=== PATIENT | female | born 1960 ===

== ENCOUNTER 2016-12-19 18:07 | Emergency (ER) | payer MEDICAID ==
[2016-12-19 18:07] VITALS: BMI 23.6
[2016-12-19 18:25] VITALS: BP 148/100; RESP 18; TEMP 97.8; O2SAT 100
[2016-12-19] MEDS ORDERED: Albuterol-Ipratrop 3 mg / 0.5 (3 ml) UD INH STA (18:45)
--- NOTE | 2016-12-19 19:16 | ED PDOC ---
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 Pt reports associated symptoms of chest tightness, sputum production, "tingling" sensation in the upper chest and lower throat. Pt denies any fever, chills, chest pain or a history of intubation. Pt reports being treated with antibiotics and steroids last month for similar symptoms which she states has provided no relief. PMD: none provided Past Medical History Reviewed: Historical Data, Nursing Documentation, Vital Signs Vital Signs: Last Vital Signs Temp 97.8 F 12/19/16 18:22 Pulse 78 12/19/16 18:22 Resp 18 12/19/16 18:22 BP 148/100 H 12/19/16 18:22 Pulse Ox 100 12/19/16 19:20 - Medical History PMH: Asthma, Bronchitis, Diabetes (type II), HTN Denies: Chronic Kidney Disease - Surgical History Surgical History: Cholecystectomy (Oct 2012), (x2) - Family History Family History: States: CAD, Diabetes - Home Medications Home Medications: Ambulatory Orders Medication Instructions Recorded Metformin HCl 1,000 mg PO BID 12/28/15 Naproxen 375 mg PO Q8 PRN #21 tab 12/28/15 amLODIPine [Norvasc] 5 mg PO DAILY 12/28/15 oxyCODONE/Acetaminophen [Percocet 1 ea PO Q6 PRN #10 tab 12/28/15 5/325 mg Tab] Naproxen [Naprosyn] 1 tab PO BID PRN #60 tab 01/22/16 Oseltamivir Phosphate [Tamiflu] 75 mg PO BID #10 capsule 01/22/16 Albuterol HFA [Ventolin HFA 90 2 puff IH Q4H #1 puff 11/18/16 mcg/actuation (8 g)] Azithromycin [Zithromax] 250 mg PO DAILY #6 tab 11/18/16 predniSONE [predniSONE Tab] 10 mg PO TID #15 tab 11/18/16 Albuterol 0.083% [Albuterol 3 ml IH Q6H PRN #50 neb 12/19/16 Sulfate 3 Ml] Methylprednisolone [Medrol Dose 4 mg PO DAILY #21 mg 12/19/16 Pack (21 tabs)] Nebulizer [Aeroeclipse] 1 each MC Q6 PRN #1 each 12/19/16 Promethazine DM [Phenergan DM 5 - 10 ml PO Q8 PRN #120 ml 12/19/16 Syrup] - Allergies Allergies/Adverse Reactions: Allergies Allergy/AdvReac Type Severity Reaction Status Date / Time No Known Allergies Allergy Verified 12/28/15 14:26 Review of Systems ROS Statement: Except As Marked, All Systems Reviewed And Found Negative Constitutional: Negative for: Fever Cardiovascular: Positive for: Other (chest tightness). Negative for: Chest Pain Respiratory: Positive for: Cough, Sputum Physical Exam - Reviewed Nursing Documentation Reviewed: Yes Vital Signs Reviewed: Yes - Physical Exam Appears: Positive for: Well, Non-toxic, No Acute Distress (pt is speaking in full sentences ) Head Exam: Positive for: ATRAUMATIC, NORMAL INSPECTION, NORMOCEPHALIC Skin: Positive for: Normal Color, Warm, DRY Eye Exam: Positive for: EOMI, Normal appearance, PERRL ENT: Positive for: Normal ENT Inspection Neck: Positive for: Normal, Painless ROM Cardiovascular/Chest: Positive for: Regular Rate, Rhythm Respiratory: Positive for: Wheezing (bilateral expiratory ). Negative for: Decreased Breath Sounds, Accessory Muscle Use, Crackles, Rales, Rhonchi Gastrointestinal/Abdominal: Positive for: Normal Exam, Bowel Sounds, Soft Back: Positive for: Normal Inspection Extremity: Positive for: Normal ROM Neurologic/Psych: Positive for: Alert, Oriented - Laboratory Results Result Diagrams: 12/19/16 19:30 12/19/16 19:30 - ECG ECG: Positive for: Interpreted By Ar ECG Rhythm: Positive for: Sinus Rhythm. Negative for: ST/T Changes Rate: 98 O2 Sat by Pulse Oximetry: 100 (RA) Pulse Ox Interpretation: Normal - Radiology X-Ray: Interpreted by Me (CXR) X-Ray Interpretation: No Acute Disease - Progress Re-evaluation Time: 22:53 (Lungs clear b/l. Reports complete relief of wheezing and dyspnea. Denies chest pain, palpitations.) Condition: Re-examined, Improved Medical Decision Making Medical Decision Making: Initial Impression: Bronchial spasm Initial Plan: * B-type natriuretic peptide * labs * Troponin I * CXR * duo-neb * solu-medrol * peak flow pre/post treatment * reevaluation Scribe Attestation: Documented by Sol Palacios, acting as a scribe for Nando Chu PA-C. Provider Scribe Attestation: All medical record entries made by the Scribe were at my direction and personally dictated by me. I have reviewed the chart and agree that the record accurately reflects my personal performance of the history, physical exam, medical decision making, and the department course for this patient. I have also personally directed, reviewed, and agree with the discharge instructions and disposition. Disposition - Clinical Impression Clinical Impression: Bronchospasm, acute - Patient ED Disposition Is Patient to be Admitted: No - Disposition Referrals: [facility] [Outside] Disposition: Routine/Home Disposition Time: 22:54 Condition: IMPROVED Prescriptions: Nebulizer [Aeroeclipse] 1 each MC Q6 PRN #1 each PRN Reason: Wheezing Albuterol 0.083% [Albuterol Sulfate 3 Ml] 3 ml IH Q6H PRN #50 neb PRN Reason: Wheezing Methylprednisolone [Medrol Dose Pack (21 tabs)] 4 mg PO DAILY #21 mg Promethazine DM [Phenergan DM Syrup] 5 - 10 ml PO Q8 PRN #120 ml PRN Reason: Cough Instructions: Bronchospasm (ED) Print Language: DIVEHI
[2016-12-19 19:37] LABS: BASO # 0.1 K/uL (0.0-0.2); BASO % 1.4 % (0.0-2.0); EOS # 1.2 K/uL (0.0-0.7); EOS % 17.6 % (0.0-4.0); HEMATOCRIT 40.5 % (34.0-47.0); LYMPH # 1.6 K/uL (1.0-4.3); MEAN CELL VOLUME 83.9 fl (81.0-99.0); MEAN CORPUSCULAR HEMOGLOBIN 27.3 pg (27.0-31.0); MEAN CORPUSCULAR HGB CONC 32.5 g/dL (33.0-37.0); MEAN PLATELET VOLUME 8.5 fl (7.2-11.7); MONO # 0.6 K/uL (0.0-0.8); MONO % 8.4 % (0.0-10.0); NEUT # 3.1 K/uL (1.8-7.0); NEUT % 47.6 % (50.0-75.0); NRBC % 0.1 % (0.0-0.0); RED CELL DISTRIBUTION WIDTH 15.6 % (11.5-14.5); WHITE BLOOD COUNT 6.6 K/uL (4.8-10.8)
[2016-12-19 19:50] LABS: ALB/GLOB RATIO 1.5 (1.0-2.1); ALKALINE PHOSPHATASE 73 U/L (38-126); ALT/SGPT 21 U/L (9-52); AST/SGOT 29 U/L (14-36); BILIRUBIN,TOTAL 0.3 mg/dl (0.2-1.3); BLOOD UREA NITROGEN 12 mg/dl (7-17); CALCIUM 9.9 mg/dL (8.4-10.2); CARBON DIOXIDE 27 mmol/L (22-30); CHLORIDE 102 mmol/L (98-107); GFR AFRICAN-AMERICAN > 60; GLUCOSE,RANDOM 94 mg/dL (65-105); POTASSIUM 4.3 MMOL/L (3.6-5.0); SODIUM 145 mmol/l (132-148); TOTAL PROTEIN 8.4 G/DL (6.3-8.2)
[2016-12-19] MEDS ORDERED: Albuterol 0.083% Inhal Sol (2.5 mg/3 mL) UD INH STA (21:09)
[2016-12-19 22:54] VITALS: PULSE 98
--- NOTE | 2016-12-20 10:34 | RAD ---
HISTORY: Cough COMPARISON: 11/18/2016 TECHNIQUE: Chest PA and lateral FINDINGS: LUNGS: There is a 10 mm nodule in the right upper lobe. The left lung is clear. The lungs are hyperinflated. PLEURA: No significant pleural effusion identified. No pneumothorax apparent. CARDIOVASCULAR: Normal. OSSEOUS STRUCTURES: No significant abnormalities. VISUALIZED UPPER ABDOMEN: Normal. OTHER FINDINGS: None. IMPRESSION: Known stable 10 mm nodule in the right upper lobe. No acute findings.
== END 2016-12-20 00:02 | disposition home or self-care (01) ==
LOC: H.ER 18:07
DX: J98.01 Acute bronchospasm (principal); E11.9 Type 2 diabetes mellitus without complications; I10 Essential (primary) hypertension

== ENCOUNTER 2017-08-17 04:41 | Emergency (ER) | payer OTHER ==
[2017-07-14 04:20] VITALS: BMI 23.2
[2017-08-17 05:00] VITALS: RESP 16; TEMP 96.7; O2SAT 98
--- NOTE | 2017-08-17 05:59 | ED PDOC ---
HPI: Headache Time Seen by Provider: 08/17/17 05:01 Chief Complaint (Nursing): Headache Chief Complaint (Provider): Headache History Per: Patient History/Exam Limitations: no limitations Onset/Duration Of Symptoms: Hrs (x 3) Current Symptoms Are (Timing): Still Present Additional Complaint(s): 56 year old female with history of diabetes, high blood pressure and occasional migraines, presents to the ED with a headache. Patient reports checking her blood pressure at home and systolic was above 200. She took extra doses of her blood pressure medication with minimal relief. Patient does not describe headache as "thunderclap" or worst she's ever had. She denies chest pain, shortness of breath, vision changes, numbness and weakness. PMD: none Past Medical History Reviewed: Historical Data, Nursing Documentation, Vital Signs Vital Signs: Last Vital Signs Temp 96.7 F L 08/17/17 04:57 Pulse 86 08/17/17 04:57 Resp 16 08/17/17 04:57 BP 184/98 H 08/17/17 04:57 Pulse Ox 98 08/17/17 04:57 - Medical History PMH: Asthma, Bronchitis, Diabetes (type II), HTN Denies: Chronic Kidney Disease - Surgical History Surgical History: Cholecystectomy (Oct 2012), (x2) - Family History Family History: States: CAD, Diabetes - Home Medications Home Medications: Ambulatory Orders Medication Instructions Recorded Metformin HCl 1,000 mg PO BID 12/28/15 Naproxen 375 mg PO Q8 PRN #21 tab 12/28/15 amLODIPine [Norvasc] 5 mg PO DAILY 12/28/15 oxyCODONE/Acetaminophen [Percocet 1 ea PO Q6 PRN #10 tab 12/28/15 5/325 mg Tab] Naproxen [Naprosyn] 1 tab PO BID PRN #60 tab 01/22/16 Oseltamivir Phosphate [Tamiflu] 75 mg PO BID #10 capsule 01/22/16 Albuterol HFA [Ventolin HFA 90 2 puff IH Q4H #1 puff 11/18/16 mcg/actuation (8 g)] Azithromycin [Zithromax] 250 mg PO DAILY #6 tab 11/18/16 predniSONE [predniSONE Tab] 10 mg PO TID #15 tab 11/18/16 Albuterol 0.083% [Albuterol 3 ml IH Q6H PRN #50 neb 12/19/16 Sulfate 3 Ml] Methylprednisolone [Medrol Dose 4 mg PO DAILY #21 mg 12/19/16 Pack (21 tabs)] Nebulizer [Aeroeclipse] 1 each MC Q6 PRN #1 each 12/19/16 Promethazine DM [Phenergan DM 5 - 10 ml PO Q8 PRN #120 ml 12/19/16 Syrup] Naproxen [Naprosyn] 500 mg PO Q6 #30 tablet 08/17/17 - Allergies Allergies/Adverse Reactions: Allergies Allergy/AdvReac Type Severity Reaction Status Date / Time No Known Allergies Allergy Verified 07/14/17 04:20 Review of Systems ROS Statement: Except As Marked, All Systems Reviewed And Found Negative Eyes: Negative for: Vision Change Cardiovascular: Negative for: Chest Pain Respiratory: Negative for: Shortness of Breath Neurological: Positive for: Headache. Negative for: Weakness, Numbness Physical Exam - Reviewed Nursing Documentation Reviewed: Yes Vital Signs Reviewed: Yes - Physical Exam Appears: Positive for: Non-toxic, No Acute Distress Head Exam: Positive for: ATRAUMATIC, NORMOCEPHALIC Skin: Positive for: Normal Color, Warm, Dry Eye Exam: Positive for: Normal appearance, PERRL Neck: Positive for: Normal, Painless ROM, Supple Cardiovascular/Chest: Positive for: Regular Rate, Rhythm. Negative for: Murmur Respiratory: Positive for: Normal Breath Sounds. Negative for: Respiratory Distress Gastrointestinal/Abdominal: Positive for: Normal Exam, Soft Back: Positive for: Normal Inspection. Negative for: L CVA Tenderness, R CVA Tenderness, Vertebral Tenderness Extremity: Positive for: Normal ROM. Negative for: Pedal Edema, Deformity Neurologic/Psych: Positive for: Alert, continuous absorption process operator II-XII, Oriented, Gait. Negative for : Motor/Sensory Deficits (wnl), Cerebellar Tests (wnl), Aphasia (wnl), Facial Droop - ECG O2 Sat by Pulse Oximetry: 98 (RA) Pulse Ox Interpretation: Normal Medical Decision Making Medical Decision Making: Time: 05:28 Impression: migraine headache Initial Plan: --Ibuprofen 600 mg PO Scribe Attestation: Documented by Xenia Lr, acting as a scribe for Jamil Andres MD Provider Scribe Attestation: All medical record entries made by the Scribe were at my direction and personally dictated by me. I have reviewed the chart and agree that the record accurately reflects my personal performance of the history, physical exam, medical decision making, and the department course for this patient. I have also personally directed, reviewed, and agree with the discharge instructions and disposition. Disposition - Clinical Impression Clinical Impression: Acute headache - Patient ED Disposition Is Patient to be Admitted: No - Disposition Referrals: Quinn Irene MD [Family Provider] - Disposition: Routine/Home Disposition Time: 06:59 Condition: STABLE Prescriptions: Naproxen [Naprosyn] 500 mg PO Q6 #30 tablet Instructions: Acute Headache (ED), Hypertension (ED) Forms: [facility] ([place]) Print Language: SLOVAK
[2017-08-17 06:58] VITALS: BP 160/93; PULSE 87
== END 2017-08-17 07:11 | disposition home or self-care (01) ==
LOC: H.ER 04:41
DX: R51 Headache (principal); E11.9 Type 2 diabetes mellitus without complications; J45.909 Unspecified asthma, uncomplicated; I10 Essential (primary) hypertension

== ENCOUNTER 2017-12-30 09:19 | Emergency (ER) | payer OTHER ==
[2017-12-30 09:21] VITALS: BMI 25.0
--- NOTE | 2017-12-30 11:01 | ED PDOC ---
HPI: General Adult Time Seen by Provider: 12/30/17 09:26 Chief Complaint (Nursing): Abnormal Skin Integrity Chief Complaint (Provider): Abnormal Skin Integrity History Per: Patient History/Exam Limitations: no limitations Onset/Duration Of Symptoms: Hrs (x 1) Additional Complaint(s): Susana López is a 57 years old female with history of HTN presents to the ED for evaluation of skin redness associated with mild itchiness developed after taking one tablet of Niacin onset 1 hour. Patient reports feeling hot, burning sensation on her face and body. She states she had a normal breakfast with coffee and denies consuming anything out of ordinary. She denies any pain, fever , difficulty breathing, tongue swelling, nausea or vomiting. Past Medical History Reviewed: Historical Data, Nursing Documentation, Vital Signs Vital Signs: Last Vital Signs Temp 97.9 F 12/30/17 11:53 Pulse 90 12/30/17 11:53 Resp 19 12/30/17 11:53 BP 149/89 12/30/17 11:53 Pulse Ox 98 12/30/17 11:53 - Medical History PMH: Asthma, Bronchitis, Diabetes (type II), HTN Denies: Chronic Kidney Disease - Surgical History Surgical History: Cholecystectomy (Oct 2012), (x2) - Family History Family History: States: CAD, Diabetes - Social History Current smoker - smoking cessation education provided: No Alcohol: None Drugs: Denies - Home Medications Home Medications: Ambulatory Orders Medication Instructions Recorded Metformin HCl 1,000 mg PO BID 12/28/15 Naproxen 375 mg PO Q8 PRN #21 tab 12/28/15 amLODIPine [Norvasc] 5 mg PO DAILY 12/28/15 oxyCODONE/Acetaminophen [Percocet 1 ea PO Q6 PRN #10 tab 12/28/15 5/325 mg Tab] Naproxen [Naprosyn] 1 tab PO BID PRN #60 tab 01/22/16 Oseltamivir Phosphate [Tamiflu] 75 mg PO BID #10 capsule 01/22/16 Albuterol HFA [Ventolin HFA 90 2 puff IH Q4H #1 puff 11/18/16 mcg/actuation (8 g)] Azithromycin [Zithromax] 250 mg PO DAILY #6 tab 11/18/16 predniSONE [predniSONE Tab] 10 mg PO TID #15 tab 11/18/16 Albuterol 0.083% [Albuterol 3 ml IH Q6H PRN #50 neb 12/19/16 Sulfate 3 Ml] Methylprednisolone [Medrol Dose 4 mg PO DAILY #21 mg 12/19/16 Pack (21 tabs)] Nebulizer [Aeroeclipse] 1 each MC Q6 PRN #1 each 12/19/16 Promethazine DM [Phenergan DM 5 - 10 ml PO Q8 PRN #120 ml 12/19/16 Syrup] Naproxen [Naprosyn] 500 mg PO Q6 #30 tablet 08/17/17 - Allergies Allergies/Adverse Reactions: Allergies Allergy/AdvReac Type Severity Reaction Status Date / Time niacin Allergy RASH Verified 12/30/17 09:32 Review of Systems ROS Statement: Except As Marked, All Systems Reviewed And Found Negative Constitutional: Negative for: Fever ENT: Negative for: Mouth Pain, Mouth Swelling (tongue) Respiratory: Negative for: Shortness of Breath Gastrointestinal: Negative for: Nausea, Vomiting Skin: Positive for: Other (mild itchiness. No pain) Physical Exam - Reviewed Nursing Documentation Reviewed: Yes Vital Signs Reviewed: Yes - Physical Exam Appears: Positive for: Non-toxic, No Acute Distress Head Exam: Positive for: ATRAUMATIC, NORMOCEPHALIC Skin: Positive for: Warm, Dry, Rash Eye Exam: Positive for: Normal appearance, EOMI, PERRL ENT: Positive for: Normal ENT Inspection, Pharynx Is (normal). Negative for: Pharyngeal Erythema, Tonsillar Swelling Neck: Positive for: Normal, Supple Cardiovascular/Chest: Positive for: Regular Rate, Rhythm. Negative for: Murmur Respiratory: Positive for: Normal Breath Sounds. Negative for: Respiratory Distress Gastrointestinal/Abdominal: Positive for: Normal Exam, Soft. Negative for: Tenderness Back: Positive for: Normal Inspection Extremity: Positive for: Normal ROM (upper and lower). Negative for: Tenderness , Swelling Neurologic/Psych: Positive for: Alert, Oriented - ECG O2 Sat by Pulse Oximetry: 99 (RA) Pulse Ox Interpretation: Normal - Progress Re-evaluation Time: 11:34 Condition: Re-examined, Improved Medical Decision Making Medical Decision Making: Time: 1027 Initial Impression: Skin Erythema. Differential include but not limited to side effect/ allergic reaction. Initial Plan: --Benadryl 25mg PO --Pepcid 20 mg PO Scribe Attestation: Documented by Michelle Dhaliwal, acting as a scribe for Rick Hopkins MD. Provider Scribe Attestation: All medical record entries made by the Scribe were at my direction and personally dictated by me. I have reviewed the chart and agree that the record accurately reflects my personal performance of the history, physical exam, medical decision making, and the department course for this patient. I have also personally directed, reviewed, and agree with the discharge instructions and disposition. Disposition - Clinical Impression Clinical Impression: Adverse reaction to niacin - Patient ED Disposition Is Patient to be Admitted: No Doctor Will See Patient In The: Office Counseled Patient/Family Regarding: Studies Performed, Diagnosis - Disposition Referrals: [facility] [Outside] Disposition: Routine/Home Disposition Time: 11:37 Condition: GOOD Additional Instructions: Take benadryl as need for itching. Follow up with your PCP in 5 days Instructions: Adverse Drug Reactions, Adult (DC) Print Language: MOLDOVAN
[2017-12-30 11:29] VITALS: TEMP 97.9
[2017-12-30 11:54] VITALS: BP 149/89; PULSE 90; RESP 19
[2017-12-30 12:22] VITALS: O2SAT 99
== END 2017-12-30 11:54 | disposition home or self-care (01) ==
LOC: H.ER 09:19
DX: T46.7X5A Adverse effect of peripheral vasodilators, initial encounter (principal); E11.9 Type 2 diabetes mellitus without complications; I10 Essential (primary) hypertension

== ENCOUNTER 2018-01-21 07:55 | Emergency (ER) | payer SELFPAY ==
[2018-01-21 08:03] VITALS: BMI 24.2
[2018-01-21] MEDS ORDERED: Albuterol-Ipratrop 3 mg / 0.5 (3 ml) UD INH STA (09:50)
[2018-01-21] MEDS ORDERED: Albuterol-Ipratrop 3 mg / 0.5 (3 ml) UD ONE (09:55)
[2018-01-21 10:55] VITALS: O2SAT 96
--- NOTE | 2018-01-21 11:20 | RAD ---
HISTORY: sob cough COMPARISON: 12/19/2016 chest x-ray and and 06/11/2014 chest x-ray. CT chest 03/05/2017 TECHNIQUE: Chest PA and lateral FINDINGS: LUNGS: The vague opacity at the right lung apex compatible with the CT referenced right lung apex 13 mm bilobed nodule. This is believe faintly perceived on the 2013 study and comparing back 2014 chest x-ray with the current chest x-ray here, no interval change is appreciated. The left very hilar soft tissue changes surrounding bronchi here are similar in appearance dating back to 2013 as well and findings are compatible with the radiographic left paramediastinal pleural parenchymal soft tissue changes- inferred as inflammatory PLEURA: No significant pleural effusion identified. No pneumothorax apparent. CARDIOVASCULAR: Normal. OSSEOUS STRUCTURES: Generalized osteopenia and mild thoracic spondylosis. VISUALIZED UPPER ABDOMEN: Normal. OTHER FINDINGS: Lung volumes appear increased on this exam-an element of COPD is not excluded. IMPRESSION: No interval pathology noted. Right lung apex nodule similar-appearing with the chest x-ray dating back to 2013 and at noted and referenced on the 2017 CT chest exam. The smaller CT chest pleural-based nodules and sub cm nodules are not appreciated on this chest x-ray but were referenced on the prior CT chest as a compared with the 05/28/2016 CT chest study. Please note the prior CT chest report
--- NOTE | 2018-01-21 11:43 | ED PDOC ---
HPI: SOB/CHF/COPD Time Seen by Provider: 01/21/18 08:25 Chief Complaint (Nursing): Shortness Of Breath Chief Complaint (Provider): Cough, Congestion, Wheezing History Per: Patient History/Exam Limitations: no limitations Onset/Duration Of Symptoms: Days (x1 week) Current Symptoms Are (Timing): Still Present Additional Complaint(s): 57 y/o female with a pmhx of asthma, diabetes, and HTN, who presents to the ED for evaluation of cough, chest congestion, and wheezing x1 week. Patient states the cough is productive of sputum. Denies chest pain and fever. PMD: [facility] Past Medical History Reviewed: Historical Data, Nursing Documentation, Vital Signs Vital Signs: Last Vital Signs Temp 97.9 F 01/21/18 12:39 Pulse 75 01/21/18 12:39 Resp 18 01/21/18 12:39 BP 147/82 01/21/18 12:39 Pulse Ox 96 01/21/18 12:39 - Medical History PMH: Asthma, Bronchitis, Diabetes (type II), HTN Denies: Chronic Kidney Disease - Surgical History Surgical History: Cholecystectomy (Oct 2012), (x2) - Family History Family History: States: CAD, Diabetes - Home Medications Home Medications: Ambulatory Orders Medication Instructions Recorded Metformin HCl 1,000 mg PO BID 12/28/15 Naproxen 375 mg PO Q8 PRN #21 tab 12/28/15 amLODIPine [Norvasc] 5 mg PO DAILY 12/28/15 oxyCODONE/Acetaminophen [Percocet 1 ea PO Q6 PRN #10 tab 12/28/15 5/325 mg Tab] Naproxen [Naprosyn] 1 tab PO BID PRN #60 tab 01/22/16 Oseltamivir Phosphate [Tamiflu] 75 mg PO BID #10 capsule 01/22/16 Azithromycin [Zithromax] 250 mg PO DAILY #6 tab 11/18/16 predniSONE [predniSONE Tab] 10 mg PO TID #15 tab 11/18/16 Methylprednisolone [Medrol Dose 4 mg PO DAILY #21 mg 12/19/16 Pack (21 tabs)] Nebulizer [Aeroeclipse] 1 each MC Q6 PRN #1 each 12/19/16 Promethazine DM [Phenergan DM 5 - 10 ml PO Q8 PRN #120 ml 12/19/16 Syrup] Naproxen [Naprosyn] 500 mg PO Q6 #30 tablet 08/17/17 Albuterol 0.083% [Albuterol 3 ml IH Q6H PRN #50 neb 01/21/18 Sulfate 3 Ml] Albuterol HFA [Ventolin HFA 90 2 puff IH Q4H #1 puff 01/21/18 mcg/actuation (8 g)] Prednisone 50 mg PO DAILY #5 tab 01/21/18 - Allergies Allergies/Adverse Reactions: Allergies Allergy/AdvReac Type Severity Reaction Status Date / Time niacin Allergy RASH Verified 12/30/17 09:32 Review of Systems ROS Statement: Except As Marked, All Systems Reviewed And Found Negative Constitutional: Negative for: Fever Cardiovascular: Positive for: Other (chest congestion). Negative for: Chest Pain Respiratory: Positive for: Cough, Sputum, Wheezing Physical Exam - Reviewed Nursing Documentation Reviewed: Yes Vital Signs Reviewed: Yes - Physical Exam Appears: Positive for: Non-toxic, No Acute Distress Head Exam: Positive for: ATRAUMATIC, NORMAL INSPECTION, NORMOCEPHALIC Skin: Positive for: Normal Color, Warm, Dry. Negative for: Rash Eye Exam: Positive for: EOMI, Normal appearance, PERRL ENT: Positive for: Normal ENT Inspection Neck: Positive for: Normal, Painless ROM, Supple Cardiovascular/Chest: Positive for: Regular Rate, Rhythm. Negative for: Murmur Respiratory: Positive for: Wheezing (bilateral) Gastrointestinal/Abdominal: Positive for: Normal Exam, Soft. Negative for: Tenderness Back: Positive for: Normal Inspection. Negative for: L CVA Tenderness, R CVA Tenderness, Vertebral Tenderness Extremity: Positive for: Normal ROM. Negative for: Pedal Edema, Deformity Neurologic/Psych: Positive for: Alert, Oriented. Negative for: Motor/Sensory Deficits - ECG O2 Sat by Pulse Oximetry: 96 (RA) Pulse Ox Interpretation: Normal - Radiology X-Ray: Viewed By Me, Read By Radiologist X-Ray Interpretation: No Acute Disease, Other (pulmonary nodule) Medical Decision Making Medical Decision Makin:48 Initial Impression: Wheezing and cough. Differential diagnoses include, but are not limited to asthma exacerbation, r/o pneumonia Plan: --EKG --CXR --Duoneb 3ml INH --Prednosione 60mg PO --Influenza A B --Reevaluation Scribe Attestation: Documented by Robert Carrasquillo, acting as a scribe for Rick Hopkins MD. Provider Scribe Attestation: All medical record entries made by the Scribe were at my direction and personally dictated by me. I have reviewed the chart and agree that the record accurately reflects my personal performance of the history, physical exam, medical decision making, and the department course for this patient. I have also personally directed, reviewed, and agree with the discharge instructions and disposition. Disposition - Clinical Impression Clinical Impression: Pulmonary nodule, Asthma - Patient ED Disposition Is Patient to be Admitted: No Doctor Will See Patient In The: Office Counseled Patient/Family Regarding: Studies Performed, Diagnosis, Need For Followup - Disposition Referrals: [facility] [Outside] Disposition: Routine/Home Disposition Time: 11:00 Condition: GOOD Additional Instructions: Take your medications as instructed. Follow up with your PCP in 2-3 days. Prescriptions: Albuterol 0.083% [Albuterol Sulfate 3 Ml] 3 ml IH Q6H PRN #50 neb PRN Reason: Wheezing Albuterol HFA [Ventolin HFA 90 mcg/actuation (8 g)] 2 puff IH Q4H #1 puff Prednisone 50 mg PO DAILY #5 tab Instructions: Asthma in Adults, Pulmonary Nodule Print Language: ANGUILLAN
[2018-01-21 12:41] VITALS: BP 147/82; PULSE 75; RESP 18; TEMP 97.9
--- NOTE | 2018-01-21 17:51 | CARD ---
APPROVED REPORT EKG Measurement Heart [id number] ID [id number] <Conclusion> Normal sinus rhythm Nonspecific ST abnormality Abnormal ECG
== END 2018-01-21 12:35 | disposition home or self-care (01) ==
LOC: H.ER 07:55
DX: J44.9 Chronic obstructive pulmonary disease, unspecified (principal); R91.1 Solitary pulmonary nodule; J45.909 Unspecified asthma, uncomplicated; E11.9 Type 2 diabetes mellitus without complications; I10 Essential (primary) hypertension; Z82.49 Family history of ischemic heart disease and other diseases of the circulatory system

== ENCOUNTER 2018-05-27 15:56 | Emergency (ER) | payer SELFPAY ==
[2018-05-27 15:56] VITALS: BMI 24.2
[2018-05-27 16:22] VITALS: O2SAT 99
--- NOTE | 2018-05-27 16:42 | ED PDOC ---
HPI: CCC, URI, Sore Throat Time Seen by Provider: 05/27/18 16:34 Chief Complaint (Nursing): ENT Problem Chief Complaint (Provider): sore throat neck pain History Per: Patient, Editor Index (melissa [id number]) History/Exam Limitations: no limitations Onset/Duration Of Symptoms: Days (2) Current Symptoms Are (Timing): Still Present Location Of Pain: Diffuse Myalgias Sick Contacts (Context): None Additional History Per: Family Additional Complaint(s): 57yo female c/o mild neck pain and sore throat ongoing 2 days. Associated w mild malaise, denies significant headache, rash or photophobia. Past Medical History Reviewed: Historical Data, Nursing Documentation, Vital Signs Vital Signs: Last Vital Signs Temp 97.5 F L 05/27/18 19:25 Pulse 74 05/27/18 19:25 Resp 17 05/27/18 19:25 BP 111/65 05/27/18 19:25 Pulse Ox 99 06/09/18 15:02 - Medical History PMH: Asthma, Bronchitis, Diabetes (type II), HTN Denies: Chronic Kidney Disease - Surgical History Surgical History: Cholecystectomy (Oct 2012), (x2) - Family History Family History: States: CAD, Diabetes - Social History Current smoker - smoking cessation education provided: No - Home Medications Home Medications: Ambulatory Orders Medication Instructions Recorded Metformin HCl 1,000 mg PO BID 12/28/15 Naproxen 375 mg PO Q8 PRN #21 tab 12/28/15 amLODIPine [Norvasc] 5 mg PO DAILY 12/28/15 oxyCODONE/Acetaminophen [Percocet 1 ea PO Q6 PRN #10 tab 12/28/15 5/325 mg Tab] Naproxen [Naprosyn] 1 tab PO BID PRN #60 tab 01/22/16 Oseltamivir Phosphate [Tamiflu] 75 mg PO BID #10 capsule 01/22/16 Azithromycin [Zithromax] 250 mg PO DAILY #6 tab 11/18/16 predniSONE [predniSONE Tab] 10 mg PO TID #15 tab 11/18/16 Methylprednisolone [Medrol Dose 4 mg PO DAILY #21 mg 12/19/16 Pack (21 tabs)] Nebulizer [Aeroeclipse] 1 each MC Q6 PRN #1 each 12/19/16 Promethazine DM [Phenergan DM 5 - 10 ml PO Q8 PRN #120 ml 12/19/16 Syrup] Naproxen [Naprosyn] 500 mg PO Q6 #30 tablet 08/17/17 Albuterol 0.083% [Albuterol 3 ml IH Q6H PRN #50 neb 01/21/18 Sulfate 3 Ml] Albuterol HFA [Ventolin HFA 90 2 puff IH Q4H #1 puff 01/21/18 mcg/actuation (8 g)] Prednisone 50 mg PO DAILY #5 tab 01/21/18 Amoxicillin/Clavulanate [Augmentin 1 tab PO BID #14 tab 05/27/18 875 MG-125 MG] Cyclobenzaprine [Cyclobenzaprine 10 mg PO Q8 PRN #9 tab 05/27/18 HCl] Ibuprofen [Motrin Tab] 600 mg PO Q6 PRN #15 tab 05/27/18 - Allergies Allergies/Adverse Reactions: Allergies Allergy/AdvReac Type Severity Reaction Status Date / Time niacin Allergy RASH Verified 12/30/17 09:32 Review of Systems Constitutional: Positive for: Malaise ENT: Positive for: Throat Pain. Negative for: Throat Swelling Cardiovascular: Negative for: Chest Pain Respiratory: Negative for: Shortness of Breath Gastrointestinal: Negative for: Nausea Genitourinary Female: Negative for: Dysuria, Hematuria Musculoskeletal: Positive for: Neck Pain. Negative for: Shoulder Pain, Back Pain, Leg Pain Skin: Negative for: Rash, Lesions, Jaundice Neurological: Positive for: Headache (mild). Negative for: Weakness, Numbness, Dizziness Physical Exam - Reviewed Nursing Documentation Reviewed: Yes Vital Signs Reviewed: Yes - Physical Exam Appears: Positive for: Well, Non-toxic, No Acute Distress Head Exam: Positive for: ATRAUMATIC, NORMAL INSPECTION, NORMOCEPHALIC Skin: Positive for: Normal Color, Warm, DRY Eye Exam: Positive for: EOMI, Normal appearance, PERRL ENT: Positive for: Normal ENT Inspection Neck: Positive for: Normal, Painless ROM, Supple, Trachea Midline. Negative for: Limited ROM, Pain On Movement Of Neck Cardiovascular/Chest: Positive for: Regular Rate, Rhythm. Negative for: Tachycardia Respiratory: Positive for: CNT, Normal Breath Sounds Gastrointestinal/Abdominal: Positive for: Normal Exam, Soft Back: Positive for: Normal Inspection Extremity: Positive for: Normal ROM Neurologic/Psych: Positive for: Alert, Oriented - Laboratory Results Result Diagrams: 05/27/18 17:25 05/27/18 17:25 - ECG O2 Sat by Pulse Oximetry: 99 Pulse Ox Interpretation: Normal - Radiology X-Ray: Read By Radiologist X-Ray Interpretation: No Acute Disease (CSpine xray neg fracture) Medical Decision Making Medical Decision Making: labs unremarkable afebrile in ED Improved over ED course. No meningitic signs. Disposition - Clinical Impression Clinical Impression: Sore throat, Neck pain - Patient ED Disposition Is Patient to be Admitted: No - Disposition Referrals: [facility] [Outside] Disposition: Routine/Home Disposition Time: 19:01 Condition: STABLE Additional Instructions: Followup with clinic for continuing care. Prescriptions: Amoxicillin/Clavulanate [Augmentin 875 MG-125 MG] 1 tab PO BID #14 tab Cyclobenzaprine [Cyclobenzaprine HCl] 10 mg PO Q8 PRN #9 tab PRN Reason: Muscle Spasm Ibuprofen [Motrin Tab] 600 mg PO Q6 PRN #15 tab PRN Reason: Pain, Moderate (4-7) Instructions: Sore Throat in Adults, Neck Pain Forms: [facility] (Swedish), [facility] ED School/Work Excuse Print Language: SERBIAN
[2018-05-27 17:33] LABS: BASO # 0.1 K/uL (0.0-0.2); EOS # 0.5 K/uL (0.0-0.7); EOS % 7.6 % (0.0-4.0); HEMOGLOBIN 11.8 g/dL (12.0-16.0); LYMPH # 1.6 K/uL (1.0-4.3); LYMPH % 26.2 % (20.0-40.0); MEAN CELL VOLUME 85.5 fl (81.0-99.0); MEAN CORPUSCULAR HEMOGLOBIN 28.3 pg (27.0-31.0); MEAN CORPUSCULAR HGB CONC 33.1 g/dL (33.0-37.0); MEAN PLATELET VOLUME 8.3 fl (7.2-11.7); MONO # 0.6 K/uL (0.0-0.8); MONO % 10.1 % (0.0-10.0); NEUT # 3.5 K/uL (1.8-7.0); NEUT % 55.1 % (50.0-75.0); NRBC % 0.1 % (0.0-0.0); RBC 4.17 Mil/uL (3.80-5.20); WHITE BLOOD COUNT 6.3 K/uL (4.8-10.8)
[2018-05-27 17:49] LABS: BLOOD UREA NITROGEN 26 mg/dl (7-17); CALCIUM 9.8 mg/dL (8.4-10.2); GFR NON-AFRICAN AMERICAN 57
--- NOTE | 2018-05-27 18:02 | RAD ---
Date of service: 05/27/2018 PROCEDURE: Cervical Spine Radiographs. HISTORY: Pain. COMPARISON: None. FINDINGS: BONES: There is mild degenerative anterior listhesis of C2 on C3 and C3 on C4. There is reversal of normal cervical lordosis with moderate cervical kyphosis. There is diffuse bone demineralization. There is no acute fracture. The craniocervical junction is normal. The atlantoaxial joint is normal. DISC SPACES: There is advanced multilevel degenerative disc disease with anterior osteophytes, reduced disc heights and multilevel facet arthropathy, worse from C4-5 to C6-7. SOFT TISSUES: Normal. No prevertebral soft tissue swelling. OTHER FINDINGS: None. IMPRESSION: No acute fracture or traumatic anterior listhesis. Multilevel degenerative disc disease, worse from C4-5 to C6-7.
[2018-05-27 19:26] VITALS: BP 111/65; PULSE 74; RESP 17; TEMP 97.5
== END 2018-05-27 19:26 | disposition home or self-care (01) ==
LOC: H.ER 15:56
DX: J02.9 Acute pharyngitis, unspecified (principal); M54.2 Cervicalgia; E11.9 Type 2 diabetes mellitus without complications; I10 Essential (primary) hypertension; J45.909 Unspecified asthma, uncomplicated; Z82.49 Family history of ischemic heart disease and other diseases of the circulatory system
CPT/HCPCS: 72040; 80048; 85025; 99283; J1885

== ENCOUNTER 2018-08-04 11:27 | Emergency (ER) | payer SELFPAY ==
[2018-08-04 11:27] VITALS: BMI 24.2
[2018-08-04 12:32] VITALS: TEMP 97
[2018-08-04] MEDS ORDERED: Albuterol-Ipratrop 3 mg / 0.5 (3 ml) UD IH STA (13:06)
[2018-08-04] MEDS ORDERED: Albuterol-Ipratrop 3 mg / 0.5 (3 ml) UD INH STA (13:06)
--- NOTE | 2018-08-04 13:22 | ED PDOC ---
HPI: SOB/CHF/COPD Time Seen by Provider: 08/04/18 12:42 Chief Complaint (Nursing): Shortness Of Breath Chief Complaint (Provider): Dyspnea History Per: Patient History/Exam Limitations: no limitations Onset/Duration Of Symptoms: Days Additional Complaint(s): Pt. with dyspnea, and sore throat. Has bronchitis and feels like that. Tried her neb with slight relieve. No weakness, chest pain, fever, cough, headaches, dizziness, back pain, abd pain. Past Medical History Reviewed: Historical Data, Nursing Documentation, Vital Signs Vital Signs: Last Vital Signs Temp 97 F L 08/04/18 12:30 Pulse 99 H 08/04/18 12:30 Resp 16 08/04/18 12:56 BP 161/132 H 08/04/18 12:30 Pulse Ox 100 08/04/18 12:30 - Medical History PMH: Asthma, Bronchitis, Diabetes (type II), HTN Denies: Chronic Kidney Disease - Surgical History Surgical History: Cholecystectomy (Oct 2012), (x2) - Family History Family History: States: CAD, Diabetes - Home Medications Home Medications: Ambulatory Orders Medication Instructions Recorded Metformin HCl 1,000 mg PO BID 12/28/15 Naproxen 375 mg PO Q8 PRN #21 tab 12/28/15 amLODIPine [Norvasc] 5 mg PO DAILY 12/28/15 oxyCODONE/Acetaminophen [Percocet 1 ea PO Q6 PRN #10 tab 12/28/15 5/325 mg Tab] Naproxen [Naprosyn] 1 tab PO BID PRN #60 tab 01/22/16 Oseltamivir Phosphate [Tamiflu] 75 mg PO BID #10 capsule 01/22/16 Azithromycin [Zithromax] 250 mg PO DAILY #6 tab 11/18/16 predniSONE [predniSONE Tab] 10 mg PO TID #15 tab 11/18/16 Methylprednisolone [Medrol Dose 4 mg PO DAILY #21 mg 12/19/16 Pack (21 tabs)] Nebulizer [Aeroeclipse] 1 each MC Q6 PRN #1 each 12/19/16 Promethazine DM [Phenergan DM 5 - 10 ml PO Q8 PRN #120 ml 12/19/16 Syrup] Naproxen [Naprosyn] 500 mg PO Q6 #30 tablet 08/17/17 Albuterol 0.083% [Albuterol 3 ml IH Q6H PRN #50 neb 01/21/18 Sulfate 3 Ml] Albuterol HFA [Ventolin HFA 90 2 puff IH Q4H #1 puff 01/21/18 mcg/actuation (8 g)] Prednisone 50 mg PO DAILY #5 tab 01/21/18 Amoxicillin/Clavulanate [Augmentin 1 tab PO BID #14 tab 05/27/18 875 MG-125 MG] Cyclobenzaprine [Cyclobenzaprine 10 mg PO Q8 PRN #9 tab 05/27/18 HCl] Ibuprofen [Motrin Tab] 600 mg PO Q6 PRN #15 tab 05/27/18 Albuterol Sulfate [Proair Hfa] 0.09 mg IH Q6H PRN #2 inh 08/04/18 predniSONE [predniSONE Tab] 20 mg PO BID 5 Days tab 08/04/18 - Allergies Allergies/Adverse Reactions: Allergies Allergy/AdvReac Type Severity Reaction Status Date / Time enalapril Allergy RASH Verified 08/04/18 12:30 niacin Allergy RASH Verified 08/04/18 12:30 Review of Systems ROS Statement: Except As Marked, All Systems Reviewed And Found Negative ENT: Positive for: Throat Pain Respiratory: Positive for: Shortness of Breath, Wheezing Physical Exam - Reviewed Nursing Documentation Reviewed: Yes Vital Signs Reviewed: Yes - Physical Exam Appears: Positive for: Non-toxic, No Acute Distress Head Exam: Positive for: ATRAUMATIC, NORMAL INSPECTION, NORMOCEPHALIC Skin: Positive for: Normal Color, Warm, DRY Eye Exam: Positive for: EOMI, Normal appearance, PERRL ENT: Positive for: Nasal Congestion Neck: Positive for: Normal, Painless ROM, Supple Cardiovascular/Chest: Positive for: Regular Rate, Rhythm Respiratory: Positive for: Wheezing Gastrointestinal/Abdominal: Positive for: Normal Exam, Soft. Negative for: Tenderness Back: Positive for: Normal Inspection. Negative for: L CVA Tenderness, R CVA Tenderness Extremity: Positive for: Normal ROM. Negative for: Tenderness, Pedal Edema Neurologic/Psych: Positive for: Alert, Oriented - ECG ECG: Positive for: Interpreted By Me, Viewed By Me ECG Rhythm: Positive for: Normal QRS, Normal ST Segment, Sinus Rhythm O2 Sat by Pulse Oximetry: 100 Pulse Ox Interpretation: Normal - Progress ED Course And Treament: 1406: Stable. AAOx3. Pain free. Tolerated PO. Fu with pcp. No dyspnea. Disposition - Clinical Impression Clinical Impression: Bronchitis - Patient ED Disposition Is Patient to be Admitted: No Counseled Patient/Family Regarding: Studies Performed, Diagnosis, Need For Followup, Rx Given - Disposition Referrals: [facility] [Outside] - 08/05/18 Disposition: Routine/Home Disposition Time: 14:07 Condition: STABLE Additional Instructions: Return if not better in 3 days. Prescriptions: Albuterol Sulfate [Proair Hfa] 0.09 mg IH Q6H PRN #2 inh PRN Reason: Wheezing predniSONE [predniSONE Tab] 20 mg PO BID 5 Days tab Instructions: Chronic Bronchitis Forms: [facility] (Kazakh), [facility] ED School/Work Excuse
[2018-08-04 14:19] VITALS: BP 98/50; PULSE 84; RESP 14; O2SAT 98
--- NOTE | 2018-08-04 18:46 | CARD ---
APPROVED REPORT Date of service: 08/04/2018 EKG Measurement Heart [id number] <Conclusion> Normal sinus rhythm Nonspecific ST and T wave abnormality Abnormal ECG
== END 2018-08-04 14:23 | disposition home or self-care (01) ==
LOC: H.ER 11:27
DX: J40 Bronchitis, not specified as acute or chronic (principal)

== ENCOUNTER 2018-09-29 16:23 | Emergency (ER) | payer SELFPAY ==
[2018-09-29 16:23] VITALS: BMI 24.2
[2018-09-29] MEDS ORDERED: Albuterol-Ipratrop 3 mg / 0.5 (3 ml) UD INH STA (16:48)
[2018-09-29] MEDS ORDERED: Albuterol-Ipratrop 3 mg / 0.5 (3 ml) UD ONE ×2 (17:16→17:18)
[2018-09-29 17:42] LABS: VENOUS BLOOD GAS BASE EXCESS 6.1 mmol/L (0.0-2.0); VENOUS BLOOD GAS PCO2 46 mmHg (40-60); VENOUS BLOOD GAS PO2 29 mm/Hg (30-55); VENOUS BLOOD PH 7.44 (7.32-7.43)
[2018-09-29 17:47] LABS: BASO # 0.1 K/uL (0.0-0.2); BASO % 0.6 % (0.0-2.0); EOS # 0.1 K/uL (0.0-0.7); EOS % 1.6 % (0.0-4.0); HEMOGLOBIN 11.2 g/dL (12.0-16.0); LYMPH # 0.9 K/uL (1.0-4.3); LYMPH % 9.4 % (20.0-40.0); MEAN CELL VOLUME 84.6 fl (81.0-99.0); MEAN CORPUSCULAR HEMOGLOBIN 28.2 pg (27.0-31.0); MEAN CORPUSCULAR HGB CONC 33.3 g/dL (33.0-37.0); MEAN PLATELET VOLUME 8.4 fl (7.2-11.7); MONO # 0.7 K/uL (0.0-0.8); MONO % 7.8 % (0.0-10.0); NEUT # 7.5 K/uL (1.8-7.0); NEUT % 80.6 % (50.0-75.0); PLATELET COUNT 254 K/uL (130-400); RBC 3.98 Mil/uL (3.80-5.20); RED CELL DISTRIBUTION WIDTH 13.4 % (11.5-14.5); WHITE BLOOD COUNT 9.3 K/uL (4.8-10.8)
[2018-09-29 17:58] LABS: ALB/GLOB RATIO 1.3 (1.0-2.1); ALBUMIN 4.5 g/dL (3.5-5.0); ALT/SGPT 35 U/L (9-52); AST/SGOT 40 U/L (14-36); BLOOD UREA NITROGEN 15 mg/dl (7-17); CALCIUM 9.5 mg/dL (8.4-10.2); GFR NON-AFRICAN AMERICAN > 60
[2018-09-29 18:07] LABS: B-TYPE NATRIURETIC PEPTIDE 114 pg/ml (0-900)
--- NOTE | 2018-09-29 18:23 | ED PDOC ---
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 She notes positive sick contacts at work but otherwise denies sore throat, nausea, vomiting, diarrhea, hemoptysis, and rash. Last dose of Tylenol taken was at 0300. Did not receive flu shot this year. PMD: Quinn Irene Past Medical History Reviewed: Historical Data, Nursing Documentation, Vital Signs Vital Signs: Last Vital Signs Temp 100.5 F H 09/29/18 16:37 Pulse 99 H 09/29/18 16:37 Resp 16 09/29/18 16:37 BP 159/85 H 09/29/18 16:37 Pulse Ox 98 09/29/18 16:37 - Medical History PMH: Asthma, Bronchitis, Diabetes (type II), HTN Denies: Chronic Kidney Disease - Surgical History Surgical History: Cholecystectomy (Oct 2012), (x2) - Family History Family History: States: CAD, Diabetes - Social History Current smoker - smoking cessation education provided: No Alcohol: None Drugs: Denies - Home Medications Home Medications: Ambulatory Orders Medication Instructions Recorded Metformin HCl 1,000 mg PO BID 12/28/15 Naproxen 375 mg PO Q8 PRN #21 tab 12/28/15 amLODIPine [Norvasc] 5 mg PO DAILY 12/28/15 oxyCODONE/Acetaminophen [Percocet 1 ea PO Q6 PRN #10 tab 12/28/15 5/325 mg Tab] Naproxen [Naprosyn] 1 tab PO BID PRN #60 tab 01/22/16 Oseltamivir Phosphate [Tamiflu] 75 mg PO BID #10 capsule 01/22/16 Azithromycin [Zithromax] 250 mg PO DAILY #6 tab 11/18/16 predniSONE [predniSONE Tab] 10 mg PO TID #15 tab 11/18/16 Methylprednisolone [Medrol Dose 4 mg PO DAILY #21 mg 12/19/16 Pack (21 tabs)] Nebulizer [Aeroeclipse] 1 each MC Q6 PRN #1 each 12/19/16 Promethazine DM [Phenergan DM 5 - 10 ml PO Q8 PRN #120 ml 12/19/16 Syrup] Naproxen [Naprosyn] 500 mg PO Q6 #30 tablet 08/17/17 Albuterol 0.083% [Albuterol 3 ml IH Q6H PRN #50 neb 01/21/18 Sulfate 3 Ml] Albuterol HFA [Ventolin HFA 90 2 puff IH Q4H #1 puff 01/21/18 mcg/actuation (8 g)] Prednisone 50 mg PO DAILY #5 tab 01/21/18 Amoxicillin/Clavulanate [Augmentin 1 tab PO BID #14 tab 05/27/18 875 MG-125 MG] Cyclobenzaprine [Cyclobenzaprine 10 mg PO Q8 PRN #9 tab 05/27/18 HCl] Ibuprofen [Motrin Tab] 600 mg PO Q6 PRN #15 tab 05/27/18 Albuterol Sulfate [Proair Hfa] 0.09 mg IH Q6H PRN #2 inh 08/04/18 predniSONE [predniSONE Tab] 20 mg PO BID 5 Days tab 08/04/18 Albuterol HFA [Ventolin HFA 90 2 puff IH [id number] PRN #120 puff 09/29/18 mcg/actuation (8 g)] Azithromycin [Zithromax] 250 mg PO DAILY #6 tab 09/29/18 Methylprednisolone [Medrol Dose 4 mg PO DAILY #21 mg 09/29/18 Pack (21 tabs)] Oseltamivir Cap [Tamiflu] 75 mg PO BID #9 cap 09/29/18 - Allergies Allergies/Adverse Reactions: Allergies Allergy/AdvReac Type Severity Reaction Status Date / Time enalapril Allergy RASH Verified 09/29/18 16:34 niacin Allergy RASH Verified 09/29/18 16:34 Review of Systems ROS Statement: Except As Marked, All Systems Reviewed And Found Negative Constitutional: Positive for: Fever ENT: Positive for: Nose Congestion. Negative for: Throat Pain Respiratory: Positive for: Cough, Wheezing. Negative for: Hemoptysis Gastrointestinal: Negative for: Nausea, Vomiting, Diarrhea Skin: Negative for: Rash Physical Exam - Reviewed Nursing Documentation Reviewed: Yes Vital Signs Reviewed: Yes - Physical Exam Appears: Positive for: No Acute Distress Head Exam: Positive for: ATRAUMATIC, NORMOCEPHALIC Skin: Positive for: Normal Color, Warm Eye Exam: Positive for: Normal appearance ENT: Positive for: Normal ENT Inspection Neck: Positive for: Normal, Painless ROM, Supple Cardiovascular/Chest: Positive for: Regular Rate, Rhythm Respiratory: Positive for: Wheezing (minimal bilateral expiratory), Other (speaking in full sentences) Gastrointestinal/Abdominal: Positive for: Normal Exam, Soft. Negative for: Tenderness Neurologic/Psych: Positive for: Alert, Oriented (x3) Medical Decision Making Medical Decision Making: Time: 1647 Initial Impression: flu-like symptoms Initial Plan: --VBG --BNP --CMP --CBC with differential --CXR --Duoneb 6ml INH --Methylprednisone 60mg IVP --Tamiflu 75mg PO --Tylenol 650mg PO --Blood culture --Throat culture --Peak flow pre/post --Influenza A B swab --Rapid strep --Urinalysis Scribe Attestation: Documented by Rachael Benz, acting as a scribe for Nando Chu PA-C. Provider Scribe Attestation: All medical record entries made by the Scribe were at my direction and personally dictated by me. I have reviewed the chart and agree that the record accurately reflects my personal performance of the history, physical exam, medical decision making, and the department course for this patient. I have also personally directed, reviewed, and agree with the discharge instructions and disposition. - Laboratory Results Result Diagrams: 09/29/18 17:25 09/29/18 17:25 Lab Results: pO2 29 mm/Hg (30-55) L 09/29/18 17:38 VBG pH 7.44 (7.32-7.43) H 09/29/18 17:38 VBG pCO2 46 mmHg (40-60) 09/29/18 17:38 VBG HCO3 28.6 mmol/L 09/29/18 17:38 VBG Total CO2 32.6 mmol/L (22-28) H 09/29/18 17:38 VBG O2 Sat (Calc) 59.1 % (40-65) 09/29/18 17:38 VBG Base Excess 6.1 mmol/L (0.0-2.0) H 09/29/18 17:38 VBG Potassium 3.4 mmol/L (3.6-5.2) L 09/29/18 17:38 Sodium 137.0 mmol/L (132-148) 09/29/18 17:38 Chloride 102.0 mmol/L (98-107) 09/29/18 17:38 Glucose 107 mg/dL (65-105) H 09/29/18 17:38 Lactate 1.3 mmol/L (0.7-2.1) 09/29/18 17:38 FiO2 21.0 % 09/29/18 17:38 NT-Pro-B Natriuret Pep 114 pg/ml (0-900) 09/29/18 17:25 Total Bilirubin 0.5 mg/dl (0.2-1.3) 09/29/18 17:25 AST 40 U/L (14-36) H D 09/29/18 17:25 ALT 35 U/L (9-52) 09/29/18 17:25 Alkaline Phosphatase 85 U/L (38-126) 09/29/18 17:25 Total Protein 7.8 G/DL (6.3-8.2) 09/29/18 17:25 Albumin 4.5 g/dL (3.5-5.0) 09/29/18 17:25 Globulin 3.3 gm/dL (2.2-3.9) 09/29/18 17:25 Albumin/Globulin Ratio 1.3 (1.0-2.1) 09/29/18 17:25 - ECG O2 Sat by Pulse Oximetry: 98 (RA) Pulse Ox Interpretation: Normal - Radiology X-Ray: Interpreted by Me (CXR) X-Ray Interpretation: No Acute Disease - Progress Re-evaluation Time: 19:49 (Lungs clear b/l. Wheezing resolved. Pt. states she is feeling much better. Informed of all results. Advised to f/u with PMD for further evaluation but is to return to ED immediately if symptoms worsen.) Condition: Re-examined, Improved Disposition - Clinical Impression Clinical Impression: Influenza-like symptoms, Bronchospasm, acute - Patient ED Disposition Is Patient to be Admitted: No - Disposition Referrals: [facility] [Outside] Disposition: Routine/Home Disposition Time: 19:50 Condition: IMPROVED Additional Instructions: FOLLOW UP WITH YOUR DOCTOR FOR FURTHER EVALUATION RETURN TO ED IMMEDIATELY IF SYMPTOMS WORSEN TIN CHAVARRIA, thank you for letting us take care of you today. Your provider was Lesley Martinez MD and you were treated for FLU LIKE SYMPTOMS. The emergency medical care you received today was directed at your acute symptoms. If you were prescribed any medication, please fill it and take as directed. It may take several days for your symptoms to resolve. Return to the Emergency Department if your symptoms worsen, do not improve, or if you have any other problems. Please contact your doctor or call one of the physicians/clinics you have been referred to that are listed on the Patient Visit Information form that is included in your discharge packet. Bring any paperwork you were given at discharge with you along with any medications you are taking to your follow up visit. Our treatment cannot replace ongoing medical care by a primary care provider outside of the emergency department. [facility]. If you had an X-Ray or CT scan: A Radiologist will review the ED reading if any change in treatment is needed we will contact you. If you had a blood, urine, or wound culture: It will take several days for the results, if any change in treatment is needed we will contact you. If you had an STI test: It will take 48 hours for the results. Please call after 1 week if you have not heard back. Prescriptions: Albuterol HFA [Ventolin HFA 90 mcg/actuation (8 g)] 2 puff IH [id number] PRN #120 puff PRN Reason: Wheezing Azithromycin [Zithromax] 250 mg PO DAILY #6 tab Methylprednisolone [Medrol Dose Pack (21 tabs)] 4 mg PO DAILY #21 mg Oseltamivir Cap [Tamiflu] 75 mg PO BID #9 cap Instructions: Flu, Adult (DC), Wheezing Forms: [facility] (Indonesian) Print Language: ALGERIAN
[2018-09-29 18:53] LABS: BANDS 2 % (0-2); BASOPHIL 1 % (0-2); EOSINOPHIL 2 % (0-7); LYMPHOCYTE 10 % (20-50); MONOCYTE 7 % (0-10); NEUTROPHIL 78 % (42-75); PLATELET ESTIMATE NORMAL (NORMAL); TOTAL CELLS COUNTED 100
[2018-09-29 18:54] LABS: ANISOCYTOSIS SLIGHT; HYPOCHROMIC SLIGHT; MICROCYTOSIS SLIGHT; POIKILOCYTOSIS SLIGHT
[2018-09-29 18:56] LABS: SQUAMOUS EPITHIAL < 1 /hpf (0-5); URINE BILIRUBIN NEGATIVE (NEGATIVE); URINE BLOOD NEGATIVE (NEGATIVE); URINE CLARITY CLEAR (Clear); URINE COLOR YELLOW (YELLOW); URINE GLUCOSE (UA) NEG (NEGATIVE); URINE LEUKOCYTE ESTERASE NEG Leu/uL (Negative); URINE PROTEIN NEGATIVE (NEGATIVE); URINE UROBILINOGEN 0.2-1.0 mg/dL (0.2-1.0)
[2018-09-29 19:43] VITALS: BP 112/70; PULSE 98; RESP 20; TEMP 99.1
[2018-09-29 19:51] VITALS: O2SAT 98
--- NOTE | 2018-09-30 08:51 | RAD ---
Date of service: 09/29/2018 HISTORY: cough COMPARISON: Chest radiographs 01/21/2018. TECHNIQUE: Chest PA and lateral FINDINGS: LUNGS: No active pulmonary disease. PLEURA: No significant pleural effusion identified. No pneumothorax apparent. CARDIOVASCULAR: No aortic atherosclerotic calcification present. Normal cardiac size. No pulmonary vascular congestion. OSSEOUS STRUCTURES: No significant abnormalities. VISUALIZED UPPER ABDOMEN: Normal. OTHER FINDINGS: None. IMPRESSION: No interval acute cardiopulmonary disease appreciated.
== END 2018-09-29 20:24 | disposition home or self-care (01) ==
LOC: H.ER 16:23
DX: J11.1 Influenza due to unidentified influenza virus with other respiratory manifestations (principal); E11.9 Type 2 diabetes mellitus without complications; J45.909 Unspecified asthma, uncomplicated; Z79.899 Other long term (current) drug therapy; Z82.49 Family history of ischemic heart disease and other diseases of the circulatory system; I10 Essential (primary) hypertension
CPT/HCPCS: 71046; 80053; 81003; 82803; 83880; 85025; 87040; 87070; 87430; 87804; 96374; 99283; J2930

== ENCOUNTER 2018-10-04 03:49 | Emergency (ER) | payer SELFPAY ==
[2018-10-04 04:09] VITALS: BMI 47.4
[2018-10-04 04:58] VITALS: RESP 18
--- NOTE | 2018-10-04 05:33 | ED PDOC ---
HPI: Headache Time Seen by Provider: 10/04/18 04:53 Chief Complaint (Nursing): Headache Chief Complaint (Provider): Headache History Per: Patient History/Exam Limitations: no limitations Onset/Duration Of Symptoms: Days (x2 days) Current Symptoms Are (Timing): Still Present Associated Symptoms: denies: Vomiting Additional Complaint(s): Tin Chavarria is a 58 year old female with a past medical history of HTN and diabetes, who presents to the emergency department complaining of a headache, onset yesterday morning. She states the pain is constant and located throughout her head but mostly around the forehead area. Patient reports that she was also here x2 days ago with flu symptoms and was told she had bronchitis and was given medrol dose pack, erythromycin, and tamiflu. Patient reports that her blood pressure fluctuates and that she was recently put on new medication. At home her systolic pressure was around 200 mmHg. She denies any hx of migraines, diarrhea, or vomiting. PMD: [facility] Past Medical History Reviewed: Historical Data, Nursing Documentation, Vital Signs Vital Signs: Last Vital Signs Temp 98.1 F 10/04/18 03:59 Pulse 89 10/04/18 03:59 Resp 18 10/04/18 03:59 BP 140/92 H 10/04/18 03:59 Pulse Ox 98 10/04/18 03:59 - Medical History PMH: Asthma, Bronchitis, Diabetes (type II), HTN Denies: Chronic Kidney Disease - Surgical History Surgical History: Cholecystectomy (Oct 2012), (x2) - Family History Family History: States: CAD, Diabetes - Home Medications Home Medications: Ambulatory Orders Medication Instructions Recorded Metformin HCl 1,000 mg PO BID 12/28/15 Naproxen 375 mg PO Q8 PRN #21 tab 12/28/15 amLODIPine [Norvasc] 5 mg PO DAILY 12/28/15 oxyCODONE/Acetaminophen [Percocet 1 ea PO Q6 PRN #10 tab 12/28/15 5/325 mg Tab] Naproxen [Naprosyn] 1 tab PO BID PRN #60 tab 01/22/16 Oseltamivir Phosphate [Tamiflu] 75 mg PO BID #10 capsule 01/22/16 Azithromycin [Zithromax] 250 mg PO DAILY #6 tab 11/18/16 predniSONE [predniSONE Tab] 10 mg PO TID #15 tab 11/18/16 Methylprednisolone [Medrol Dose 4 mg PO DAILY #21 mg 12/19/16 Pack (21 tabs)] Nebulizer [Aeroeclipse] 1 each MC Q6 PRN #1 each 12/19/16 Promethazine DM [Phenergan DM 5 - 10 ml PO Q8 PRN #120 ml 12/19/16 Syrup] Naproxen [Naprosyn] 500 mg PO Q6 #30 tablet 08/17/17 Albuterol 0.083% [Albuterol 3 ml IH Q6H PRN #50 neb 01/21/18 Sulfate 3 Ml] Albuterol HFA [Ventolin HFA 90 2 puff IH Q4H #1 puff 01/21/18 mcg/actuation (8 g)] Prednisone 50 mg PO DAILY #5 tab 01/21/18 Amoxicillin/Clavulanate [Augmentin 1 tab PO BID #14 tab 05/27/18 875 MG-125 MG] Cyclobenzaprine [Cyclobenzaprine 10 mg PO Q8 PRN #9 tab 05/27/18 HCl] Ibuprofen [Motrin Tab] 600 mg PO Q6 PRN #15 tab 05/27/18 Albuterol Sulfate [Proair Hfa] 0.09 mg IH Q6H PRN #2 inh 08/04/18 predniSONE [predniSONE Tab] 20 mg PO BID 5 Days tab 08/04/18 Albuterol HFA [Ventolin HFA 90 2 puff IH Q4EDOPQ PRN #120 puff 09/29/18 mcg/actuation (8 g)] Azithromycin [Zithromax] 250 mg PO DAILY #6 tab 09/29/18 Methylprednisolone [Medrol Dose 4 mg PO DAILY #21 mg 09/29/18 Pack (21 tabs)] Oseltamivir Cap [Tamiflu] 75 mg PO BID #9 cap 09/29/18 - Allergies Allergies/Adverse Reactions: Allergies Allergy/AdvReac Type Severity Reaction Status Date / Time enalapril Allergy RASH Verified 09/29/18 16:34 niacin Allergy RASH Verified 09/29/18 16:34 Review of Systems ROS Statement: Except As Marked, All Systems Reviewed And Found Negative Gastrointestinal: Negative for: Vomiting, Diarrhea Neurological: Positive for: Headache Physical Exam - Reviewed Nursing Documentation Reviewed: Yes Vital Signs Reviewed: Yes - Physical Exam Appears: Positive for: Non-toxic, No Acute Distress Head Exam: Positive for: ATRAUMATIC, NORMOCEPHALIC Skin: Positive for: Normal Color, Warm, Dry Eye Exam: Positive for: Normal appearance, EOMI, PERRL ENT: Positive for: Normal ENT Inspection Neck: Positive for: Normal, Painless ROM, Supple Cardiovascular/Chest: Positive for: Regular Rate, Rhythm. Negative for: Murmur Respiratory: Positive for: Normal Breath Sounds. Negative for: Respiratory Distress Gastrointestinal/Abdominal: Positive for: Normal Exam, Soft. Negative for: Tenderness Back: Positive for: Normal Inspection. Negative for: L CVA Tenderness, R CVA Tenderness, Vertebral Tenderness Extremity: Positive for: Normal ROM. Negative for: Pedal Edema, Deformity Neurologic/Psych: Positive for: Alert, Oriented - Laboratory Results Result Diagrams: 10/04/18 05:30 10/04/18 05:30 - ECG O2 Sat by Pulse Oximetry: 98 (RA) Pulse Ox Interpretation: Normal - Progress Re-evaluation Time: 06:05 Condition: Re-examined, Improved Medical Decision Making Medical Decision Making: Time: 0506 Impression: headache Plan: --CT Head without contrast --EKG --BMP --ED urine dipstick --CBC with differential --Erythrocyte sedimentation rate --Toradol 30 mg IVP --Reglan 10 mg IVP Accucheck: 117 CT findings: Normal size of the ventricles and extra-axial spaces for the patient's age. Normal white matter tracts of the supratentorial brain. Normal basal ganglia and thalami. Normal brainstem. Normal cerebellum. There is no demonstrated extra-axial, intraparenchymal, or intraventricular hemorrhage. There are no findings of an acute ischemic infarction. Normal calvarium. There is no demonstrated fracture. Normal soft tissue structures. Normal visualized paranasal sinuses. IMPRESSION: Normal unenhanced CT scan of the brain. Scribe Attestation: Documented by Benjamin Mobley, acting as a scribe for Rick Hopkins MD. Provider Scribe Attestation: All medical record entries made by the Scribe were at my direction and personally dictated by me. I have reviewed the chart and agree that the record accurately reflects my personal performance of the history, physical exam, medical decision making, and the department course for this patient. I have also personally directed, reviewed, and agree with the discharge instructions and disposition. Disposition - Clinical Impression Clinical Impression: Headache, Acute headache - Patient ED Disposition Is Patient to be Admitted: No Counseled Patient/Family Regarding: Studies Performed, Diagnosis - Disposition Referrals: [facility] [Outside] Disposition: Routine/Home Disposition Time: 06:06 Condition: GOOD Additional Instructions: TIN CHAVARRIA, thank you for letting us take care of you today. Your provider w as Rick Hopkins MD and you were treated for HEADACHE. The emergency medical care you received today was directed at your acute symptoms. If you were prescribed any medication, please fill it and take as directed. It may take several days for your symptoms to resolve. Return to the Emergency Department if your symptoms worsen, do not improve, or if you have any other problems. Please contact your doctor or call one of the physicians/clinics you have been referred to that are listed on the Patient Visit Information form that is included in your discharge packet. Bring any paperwork you were given at discharge with you along with any medications you are taking to your follow up visit. Our treatment cannot replace ongoing medical care by a primary care provider outside of the emergency department. Thank you for allowing the [facility] team to be part of your care today. If you had an X-Ray or CT scan: A Radiologist will review the ED reading if any change in treatment is needed we will contact you. If you had a blood, urine, or wound culture: It will take several days for the results, if any change in treatment is needed we will contact you. If you had an STI test: It will take 48 hours for the results. Please call after 1 week if you have not heard back. Instructions: Acute Headache (ED) Print Language: MEXICAN
[2018-10-04 05:40] LABS: BASO % 0.5 % (0.0-2.0); EOS # 0.1 K/uL (0.0-0.7); EOS % 2.1 % (0.0-4.0); HEMOGLOBIN 12.4 g/dL (12.0-16.0); LYMPH # 1.4 K/uL (1.0-4.3); LYMPH % 20.6 % (20.0-40.0); MEAN CELL VOLUME 84.3 fl (81.0-99.0); MEAN CORPUSCULAR HEMOGLOBIN 27.7 pg (27.0-31.0); MEAN CORPUSCULAR HGB CONC 32.8 g/dL (33.0-37.0); MEAN PLATELET VOLUME 7.8 fl (7.2-11.7); MONO # 0.5 K/uL (0.0-0.8); MONO % 7.3 % (0.0-10.0); NEUT # 4.9 K/uL (1.8-7.0); NEUT % 69.5 % (50.0-75.0); NRBC % 0.1 % (0.0-0.0); RBC 4.47 Mil/uL (3.80-5.20); RED CELL DISTRIBUTION WIDTH 13.1 % (11.5-14.5)
[2018-10-04 05:49] LABS: BLOOD UREA NITROGEN 18 mg/dl (7-17); CALCIUM 9.9 mg/dL (8.4-10.2); GFR NON-AFRICAN AMERICAN > 60
[2018-10-04 06:55] VITALS: BP 142/88; PULSE 92; TEMP 98.2
--- NOTE | 2018-10-04 09:18 | CT ---
Date of service: 2018-10-04 05:37:11 PROCEDURE: CT HEAD WITHOUT CONTRAST. HISTORY: headache COMPARISON: None available. TECHNIQUE: Axial computed tomography images were obtained through the head/brain without intravenous contrast. Radiation dose: Total exam DLP = 801.08 mGy-cm. This CT exam was performed using one or more of the following dose reduction techniques: Automated exposure control, adjustment of the mA and/or kV according to patient size, and/or use of iterative reconstruction technique. FINDINGS: HEMORRHAGE: No intracranial hemorrhage. BRAIN: There appear to be subtle low-attenuation subcortical white matter changes seen in the frontal lobes bilaterally left-side more conspicuous than the right. These findings seen best on axial series 4, image number 24 findings probably represent subcortical ischemic changes. Mild age-appropriate volume loss. VENTRICLES: No obstructive hydrocephalus hydrocephalus. CALVARIUM: No acute calvarial fractures. PARANASAL SINUSES: Unremarkable as visualized. No significant inflammatory changes. MASTOID AIR CELLS: Unremarkable as visualized. No inflammatory changes. OTHER FINDINGS: None. IMPRESSION: No acute intracranial hemorrhage.. There appear to be subtle low-attenuation subcortical white matter changes seen in the frontal lobes bilaterally left-side more conspicuous than the right. These findings seen best on axial series 4, image number 24 findings probably represent subcortical ischemic changes. Mild age-appropriate volume loss.
[2018-10-04 13:37] VITALS: O2SAT 98
== END 2018-10-04 06:40 | disposition home or self-care (01) ==
LOC: H.ER 03:49
DX: R51 Headache (principal)
CPT/HCPCS: 70450; 80048; 82948; 85025; 85651; 96374; 96375; 99285; J1885; J2765

== ENCOUNTER 2018-11-28 14:20 | Emergency (ER) | payer SELFPAY ==
[2018-11-28 14:21] VITALS: BMI 47.4
[2018-11-28 14:38] VITALS: TEMP 97.9
[2018-11-28] MEDS ORDERED: Albuterol-Ipratrop 3 mg / 0.5 (3 ml) UD IH STA (14:52)
[2018-11-28] MEDS ORDERED: Albuterol-Ipratrop 3 mg / 0.5 (3 ml) UD INH STA (14:52)
--- NOTE | 2018-11-28 14:53 | ED PDOC ---
HPI: SOB/CHF/COPD Time Seen by Provider: 11/28/18 14:43 Chief Complaint (Nursing): Shortness Of Breath Chief Complaint (Provider): Dyspnea History Per: Patient History/Exam Limitations: no limitations Onset/Duration Of Symptoms: Days (2 weeks) Additional Complaint(s): Pt. with dyspnea wheezing like her chronic bronchitis. Pt. with no chest pain, cough, fever, abd pain, headaches, dizziness, weakness. No leg pain. Has had similar in the past. Past Medical History Reviewed: Nursing Documentation, Vital Signs Vital Signs: Last Vital Signs Temp 97.9 F 11/28/18 14:35 Pulse 89 11/28/18 14:35 Resp 16 11/28/18 14:35 BP 139/85 11/28/18 14:35 Pulse Ox 100 11/28/18 14:35 - Medical History PMH: Asthma, Bronchitis, Diabetes (type II), HTN Denies: Chronic Kidney Disease - Surgical History Surgical History: Cholecystectomy (Oct 2012), (x2) - Family History Family History: States: CAD, Diabetes - Home Medications Home Medications: Ambulatory Orders Medication Instructions Recorded Metformin HCl 1,000 mg PO BID 12/28/15 Naproxen 375 mg PO Q8 PRN #21 tab 12/28/15 amLODIPine [Norvasc] 5 mg PO DAILY 12/28/15 oxyCODONE/Acetaminophen [Percocet 1 ea PO Q6 PRN #10 tab 12/28/15 5/325 mg Tab] Naproxen [Naprosyn] 1 tab PO BID PRN #60 tab 01/22/16 Oseltamivir Phosphate [Tamiflu] 75 mg PO BID #10 capsule 01/22/16 Azithromycin [Zithromax] 250 mg PO DAILY #6 tab 11/18/16 predniSONE [predniSONE Tab] 10 mg PO TID #15 tab 11/18/16 Methylprednisolone [Medrol Dose 4 mg PO DAILY #21 mg 12/19/16 Pack (21 tabs)] Nebulizer [Aeroeclipse] 1 each MC Q6 PRN #1 each 12/19/16 Promethazine DM [Phenergan DM 5 - 10 ml PO Q8 PRN #120 ml 12/19/16 Syrup] Naproxen [Naprosyn] 500 mg PO Q6 #30 tablet 08/17/17 Albuterol 0.083% [Albuterol 3 ml IH Q6H PRN #50 neb 01/21/18 Sulfate 3 Ml] Albuterol HFA [Ventolin HFA 90 2 puff IH Q4H #1 puff 01/21/18 mcg/actuation (8 g)] Prednisone 50 mg PO DAILY #5 tab 01/21/18 Amoxicillin/Clavulanate [Augmentin 1 tab PO BID #14 tab 05/27/18 875 MG-125 MG] Cyclobenzaprine [Cyclobenzaprine 10 mg PO Q8 PRN #9 tab 05/27/18 HCl] Ibuprofen [Motrin Tab] 600 mg PO Q6 PRN #15 tab 05/27/18 Albuterol Sulfate [Proair Hfa] 0.09 mg IH Q6H PRN #2 inh 08/04/18 predniSONE [predniSONE Tab] 20 mg PO BID 5 Days tab 08/04/18 Albuterol HFA [Ventolin HFA 90 2 puff IH [id number] PRN #120 puff 09/29/18 mcg/actuation (8 g)] Azithromycin [Zithromax] 250 mg PO DAILY #6 tab 09/29/18 Methylprednisolone [Medrol Dose 4 mg PO DAILY #21 mg 09/29/18 Pack (21 tabs)] Oseltamivir Cap [Tamiflu] 75 mg PO BID #9 cap 09/29/18 Albuterol Sulfate [Proair Hfa] 0.09 mg IH Q6H PRN #2 inh 11/28/18 predniSONE [predniSONE Tab] 20 mg PO BID 5 Days tab 11/28/18 - Allergies Allergies/Adverse Reactions: Allergies Allergy/AdvReac Type Severity Reaction Status Date / Time enalapril Allergy RASH Verified 11/28/18 14:35 niacin Allergy RASH Verified 11/28/18 14:35 Review of Systems ROS Statement: Except As Marked, All Systems Reviewed And Found Negative Respiratory: Positive for: Shortness of Breath, Wheezing Physical Exam - Reviewed Nursing Documentation Reviewed: Yes Vital Signs Reviewed: Yes - Physical Exam Appears: Positive for: Non-toxic, No Acute Distress Head Exam: Positive for: ATRAUMATIC, NORMAL INSPECTION, NORMOCEPHALIC Skin: Positive for: Normal Color, Warm, DRY Eye Exam: Positive for: EOMI, Normal appearance, PERRL ENT: Positive for: Normal ENT Inspection Neck: Positive for: Normal, Painless ROM Cardiovascular/Chest: Positive for: Regular Rate, Rhythm Respiratory: Positive for: Wheezing Gastrointestinal/Abdominal: Positive for: Normal Exam, Soft. Negative for: Tenderness Back: Positive for: Normal Inspection. Negative for: L CVA Tenderness, R CVA Tenderness Extremity: Positive for: Normal ROM. Negative for: Tenderness, Pedal Edema Neurological/Psych: Positive for: Awake, Alert, Normal Tone - ECG ECG: Positive for: Interpreted By Me, Viewed By Me ECG Rhythm: Positive for: Normal QRS, Normal ST Segment, Sinus Rhythm O2 Sat by Pulse Oximetry: 100 Pulse Ox Interpretation: Normal - Progress ED Course And Treament: 1650: Stable. AAOx3. Pain free. Tolerated po. No more wheezes. Fu with pcp. Disposition - Clinical Impression Clinical Impression: Bronchitis - Patient ED Disposition Is Patient to be Admitted: No Counseled Patient/Family Regarding: Studies Performed, Diagnosis, Need For Followup, Rx Given - Disposition Referrals: [facility] [Outside] - 11/30/18 Disposition: Routine/Home Disposition Time: 16:52 Condition: STABLE Additional Instructions: Return if not better in 3 days. Prescriptions: Albuterol Sulfate [Proair Hfa] 0.09 mg IH Q6H PRN #2 inh PRN Reason: Wheezing predniSONE [predniSONE Tab] 20 mg PO BID 5 Days tab Instructions: Acute Bronchitis
[2018-11-28] MEDS ORDERED: Albuterol-Ipratrop 3 mg / 0.5 (3 ml) UD ONE (15:17)
[2018-11-28 17:32] VITALS: BP 130/76; PULSE 97; RESP 13; O2SAT 96
--- NOTE | 2018-11-29 16:39 | CARD ---
APPROVED REPORT Date of service: 11/28/2018 EKG Measurement Heart [id number] <Conclusion> Sinus tachycardia Otherwise normal ECG
== END 2018-11-28 17:48 | disposition home or self-care (01) ==
LOC: H.ER 14:20
DX: J40 Bronchitis, not specified as acute or chronic (principal); E11.9 Type 2 diabetes mellitus without complications; I10 Essential (primary) hypertension; J44.9 Chronic obstructive pulmonary disease, unspecified; Z79.899 Other long term (current) drug therapy; Z82.49 Family history of ischemic heart disease and other diseases of the circulatory system